=== PATIENT | female | born 1995 | race Two or more races ===

== ENCOUNTER 2020-09-09 15:04 | Emergency (ER) | payer SELFPAY ==
[~2020-09-09] VITALS: Ht 162.6 cm; Wt 66.0 kg
== END 2020-09-09 18:55 | disposition left against medical advice (07) ==
LOC: ER 15:04
DX: Z53.21 Procedure and treatment not carried out due to patient leaving prior to being seen by health care provider (principal)

== ENCOUNTER 2021-07-05 08:54 | Emergency (ER) | payer OTHER ==
[~2021-07-05] VITALS: Ht 162.6 cm; Wt 66.0 kg
[2021-07-05 09:00] VITALS: BP 107/68
[2021-07-05 09:48] LABS: CLARITY URINE CLOUDY (CLEAR); COLOR URINE YELLOW (YELLOW); KETONES URINE NEGATIVE (NEGATIVE); LEUKOCYTE ESTERASE URINE 3+ (NEGATIVE); NITRITE URINE NEGATIVE (NEGATIVE); OCCULT BLOOD URINE NEGATIVE (NEGATIVE); PROTEIN URINE NEGATIVE (NEGATIVE); SPECIFIC GRAVITY URINE 1.014 (1.005-1.030)
[2021-07-05] MEDS ORDERED: DIF15 PO (11:12)
[2021-07-05] MEDS ORDERED: METR500T MT (11:12)
[2021-07-05] MEDS ORDERED: NITR-87 MT (11:12)
[2021-07-05] MEDS ORDERED: LORA10CA MT (11:18)
[2021-07-05] MEDS ORDERED: FLUT9.9S16 BOTHNSTRLS (11:18)
[2021-07-05] MEDS ORDERED: PSEU60TA95 MT (11:18)
== END 2021-07-05 11:45 | disposition home or self-care (01) ==
LOC: ER 08:54
DX: J01.90 Acute sinusitis, unspecified (principal); B37.3 Candidiasis of vulva and vagina; N76.0 Acute vaginitis; Z79.899 Other long term (current) drug therapy
CPT/HCPCS: 81003; 81025; 87210; 87491; 87591; 99283